=== PATIENT | female | born 1955 | race Caucasian/White ===

== ENCOUNTER 2021-12-17 15:38 | Emergency (ER) | payer MEDICARE, SELFPAY ==
--- NOTE | ~2021-12-17 | XR_ITS ---
EXAMINATION: XR hip LT 2V w AP pelvis, XR sacrum coccyx min 2V DATE: 12/17/2021 18:22 INDICATION: Left-sided pelvic pain post fall TECHNIQUE: 1. Anteroposterior view of the pelvis and anteroposterior and frog leg lateral views of the left hip were obtained. 2. AP and angled AP view of the sacrum and coccyx were obtained. COMPARISON: CT dated 12/17/2021 FINDINGS: Again seen are bilateral total hip arthroplasties. On the left this is superimposed over an old heale d left acetabular fracture with plate and screw fixation. There is also been prior L5-S1 anterior and posterior spinal fusion with interbody bone graft cages and bilateral vertical olivia and pedicle screw fixation. Spinal stimulator projects over the right lower quadrant with leads extending cephalad bey ond the margin of the [id number]. Surgical clip at the right lower quadrant. No acute fractures id entified. No periprosthetic lucency to suggest loosening. IMPRESSION: 1. Postoperative changes as detailed above. No acute fracture identified. Reviewed, dictated and finalized at location A. IMPRESSION: 1. Postoperative changes as detailed above. No acute fracture identified.
--- NOTE | ~2021-12-17 | CT_ITS ---
EXAMINATION: CT pelvis wo con DATE: 12/17/2021 17:23 INDICATION: Left hip and coccyx pain post fall TECHNIQUE: Computed tomography (CT) of the pelvis was performed without intravenous contrast. Automat ed exposure control and iterative reconstruction technique were employed.The dose-length product was 438.70 mGy-cm. COMPARISON: None FINDINGS: Right total hip arthroplasty which appears well seated in near-anatomic alignment. There is also a le ft total hip arthroplasty along with associated likely acetabular reconstruction with plate and screw fixation extending from the supra-acetabular region to the left ischium. Finally there is a partiall y visualized L5-S1 posterior spinal fusion with bilateral vertical olivia and pedicle screw fixation. Th ere is also anterior fusion at L5-S1 with interbody bone graft cage. Streak artifact from the instrum entation particularly at the level of the acetabula limits evaluation of the immediately adjacent bon es and soft tissues. No acute fractures identified. Normal alignment including at the coccyx. Likely spinal stimulator in the subcutaneous tissues at the superior right buttock muscle visualized leads w hich on the soft work wrapper examiner topogram project over the central canal of the upper lumbar and lower thoracic spin e. Cholecystectomy clips in right upper quadrant with trochar clip at the right paracolic gutter. Fol ey catheter extends towards the bladder which is obscured by streak artifact. IMPRESSION: 1. No acute osseous abnormality. Assessment is however limited by metallic streak artifact related to bilateral total hip arthroplasties and plate and screw fixation for a likely left acetabular reconst ruction. Would consider additional dedicated radiograph of the left hip, sacrum and coccyx for more d efinitive assessment of the regions of bone obscured by the artifact. Reviewed, dictated and finalized at location A. IMPRESSION: 1. No acute osseous abnormality. Assessment is however limited by metallic stre ak artifact related to bilateral total hip arthroplasties and plate and screw f ixation for a likely left acetabular reconstruction. Would consider additional dedicated radiograph of the left hip, sacrum and coccyx for more definitive ass essment of the regions of bone obscured by the artifact.
[2021-12-17 15:54] VITALS: BP 178/89; PULSE 80; RESP 18; TEMP 37.2; O2SAT 98
--- NOTE | 2021-12-17 15:58 | ED.GENADULT ---
HPI - General Adult General Chief complaint: Extremity Injury, Lower Stated complaint: left pelvis injury been brokwe before History of Present Illness HPI narrative: The patient is a 66-year-old woman with multiple orthopedic procedures in the past. To summarize: LEFT HIP: she has had 4 left hip operations, initially a total hip arthroplasty then revision 4 weeks later then redo total hip arthroplasty in 2010 which was complicated by fracture of the acetabulum and pelvis which required a redo operation within a few weeks at [facility] in [place] in 2010. RIGHT HIP: She has had a right hip right hip arthroplasty once. RIGHT KNEE: The right knee has been operated on twice, total knee replacement followed by revision 6 months later. LEFT KNEE: The left knee has been operated on once for left total knee replacement. LEFT SHOULDER: The left shoulder has been operated on once for left shoulder replacement. RIGTH SHOULDER: The right shoulder was replaced and then dislocated so a larger socket was placed which then dislocated and then was revised a 3rd time. RIGHT FOOT ANKLE: Her most recent orthopedic procedure has been right foot ankle fusion 2 months ago, on October 05, 2021. C SPINE: She also has had a prior cervical fusion. Her other predicted medical history is notable for vaccination against COVID-19, 2 of 2 doses +1 booster. She has had a previous DVT and was on Eliquis but this has been held. She was restarted on Eliquis as of today but she has not taken today's dose yet. She is not on any antiplatelet or anticoagulant agents at present. She does have chronic pain and is on methadone 50 mg p.o. t.i.d.. She is on Xanax as needed as well. She was working outside with her whereby her left leg fell into a ditch (for a water meter whose lid was not secured well). Her entire left leg entered the water meter ditch up to the pelvis/perineal region. She sustained pain in the left acetabulum region posteriorly and also the left tailbone region. She has not been able to ambulate since this event which took place just prior to arrival. Her brought her here. EMS was not notified. She has not been able to bear any weight on the left leg. She is complaining of severe excruciating pain in the posterior left pelvis region and in the tailbone region. No other complaints of pain in the right lower extremity or in either upper extremity or in the neck or upper or middle or lower back. Related Data Home Medications Medication Instructions Recorded Confirmed alprazolam 1 mg tablet 2 mg PO DAILY 12/17/21 12/17/21 levothyroxine 75 mcg tablet 75 mcg PO DAILY 12/17/21 12/17/21 methadone 5 mg tablet 5 mg PO TID 12/17/21 12/17/21 mirtazapine 15 mg tablet 15 mg PO DAILY 12/17/21 12/17/21 sertraline 100 mg tablet 100 mg PO DAILY 12/17/21 12/17/21 Allergies Allergy/AdvReac Type Severity Reaction Status Date / Time dextrose Allergy Unknown Verified 12/17/21 16:32 Latex, Natural Rubber Allergy Unknown Verified 12/17/21 16:32 ondansetron [From Zofran] Allergy Unknown Verified 12/17/21 16:32 Review of Systems Review of Systems: All systems reviewed & are unremarkable except as noted in HPI and below Constitutional: Constitutional: Reports no additional constitutional complaints, Denies anorexia, Denies body ache(s), Denies chills, Denies excessive sweating, Denies fatigue, Denies fever(s), Denies frequent falls, Denies headache(s), Denies malaise and Denies poor appetite Eyes: Eyes: Reports no additional eye complaints, Denies blurry vision, Denies change in vision, Denies irritation, Denies itchy eyes and Denies photophobia ENT: Reports system reviewed and no additional complaints, except as documented, Reports Normal hearing present, Denies change in voice, Denies dysphagia, Denies vertigo, Denies dizziness, Denies ear discharge, Denies headache(s), Denies hearing loss, Denies hoarseness, Denies nasal congestion, D
[2021-12-17] MEDS: fentaNYL CITRATE INJ (*CRX) 100 MCG/2 ML VIAL (16:00)
[2021-12-17] MEDS: SODIUM CHLORIDE 0.9% IV 1,000 ML 125 ML IV CONT (16:49)
[2021-12-17] MEDS: HYDROmorphone HCL INJ (*CRX) 2 MG/ML VIAL 0.5 MG IV PUSH (16:53)
[2021-12-17 16:55] LABS: Basophils Absolute Auto 0.05 K/mm3 (0.00-0.10); Basophils Percent Auto 0.5 % (0.0-1.0); Eosinophils Absolute Auto 0.15 K/mm3 (0.02-0.50); Eosinophils Percent Auto 1.5 % (1.0-6.0); Hematocrit 37.1 % (35.0-42.0); Hemoglobin 12.2 g/dL (11.7-13.8); Immature Granulocyte Absolute 0.04 K/mm3 (0.00-0.00); Immature Granulocyte Percent A 0.4 % (0.0-0.0); Lymphocytes Absolute Auto 2.18 K/mm3 (1.10-4.50); Lymphocytes Percent Auto 21.6 % (18.0-42.0); Mean Corpuscular HGB Conc 32.9 g/dL (32.0-36.0); Mean Corpuscular Hemoglobin 31.2 pg (27.0-31.0); Mean Corpuscular Volume 94.9 fL (78.0-102.0); Monocytes Absolute Auto 0.75 K/mm3 (0.10-0.90); Monocytes Percent Auto 7.4 % (2.0-11.0); Neutrophils Absolute Auto 6.9 K/mm3 (1.7-7.2); Neutrophils Percent Auto 68.6 % (50.0-70.0); Platelet Count Result 226 K/mm3 (150-420); Red Blood Count 3.91 M/mm3 (4.20-5.40); Red Cell Distribution Width 12.3 % (11.6-14.4); White Blood Count 10.1 K/mm3 (4.8-10.8)
[2021-12-17] MEDS: Please add drug allergy info to patient profile. 1 EACH XX (16:57)
[2021-12-17 17:08] LABS: Partial Thromboplastin Time 25.8 SEC (23.90-30.70); Prothrombin Time 11.4 Seconds (9.50-12.10)
[2021-12-17 17:09] LABS: Alanine Aminotransferase 28 U/L (14-59); Albumin Level 3.9 g/dL (3.4-5.0); Alkaline Phosphatase 123 U/L (46-116); Anion Gap 9 mmol/L (8-16); Aspartate Amino Transferase 28 U/L (15-37); Bilirubin,Total 0.3 mg/dL (0.00-1.00); Blood Urea Nitrogen 26 mg/dL (7-18); Calcium 8.6 mg/dL (8.5-10.1); Carbon Dioxide 28 mmol/L (21-32); Chloride 103 mmol/L (98-108); Estimated Glomerular Filt Rate 52; Glucose 84 mg/dL (70-99); Osmolality Calculated 293 mOsm/kg (285-295); Potassium 4.4 mmol/L (3.5-5.1); Sodium 140 mmol/L (136-145); Total Protein 7.3 g/dL (6.4-8.2)
[2021-12-17 17:14] LABS: Appearance Urine Cloudy (Clear); Bilirubin Urine Negative (Negative); Color Urine Yellow (Yellow); Glucose Urine UA Negative (Negative); Ketones Urine Negative (Negative); Leukocyte Esterase Ur Trace LEU/UL (Negative); Nitrate Urine Positive (Negative); Protein Urine Trace (Negative); Specific Grav Ur >= 1.030 (1.010-1.020); Urobilinogen Urine 0.2 mg/dL (0.2-1.0)
[2021-12-17 17:17] LABS: Add Urine Microscopic? YES; Bacteria Urine 3+ /hpf; Blood Urine Trace-Intact (Negative); Squamous Epithelial Cell Urine Many /hpf (Few)
[2021-12-17 17:21] LABS: Amphetamine Screen Urine Negative (Negative); Barbiturate Screen Urine Negative (Negative); Benzodiazepines Screen Urine Positive (Negative); Cannabinoid Screen Urine Positive (Negative); Cocaine Screen Urine Negative (Negative); Methadone Screen Urine Positive (Negative); Opiate Screen Urine Negative (Negative); Phencyclidine Screen Urine Negative (Negative)
[2021-12-17 17:28] LABS: SARS-CoV-2 RNA PCR Negative (Negative)
[2021-12-17 18:00] VITALS: BP 124/75; PULSE 74; RESP 20; O2SAT 97
--- NOTE | 2021-12-17 18:23 | PC.NURSE ---
pt returned to xray for more films. resting comfortably.
--- NOTE | 2021-12-17 19:02 | PC.NURSE ---
pt report to kong harrison, no questions.
[2021-12-17] MEDS: ORPHENADRINE CITRATE 30 MG/ML 2 ML VIAL 60 MG IV PUSH (19:08)
[2021-12-17 19:14] VITALS: BP 94/78; PULSE 74; RESP 20; O2SAT 97
[2021-12-17] MEDS: CYCLOBENZAPRINE HCL 10 MG TABLET PO (20:28)
[2021-12-17] MEDS: HYDROcodone/acetaminophen (*CRX) 5-325 MG TABLET 1 TAB PO (20:28)
[2021-12-17 20:38] VITALS: BP 123/76; PULSE 51; RESP 16; O2SAT 96
== END 2021-12-17 20:39 | disposition home or self-care (01) ==
PROVIDERS: Emergency Provider Emergency Medicine; PCP Emergency Medicine
DX: M25.552 Pain in left hip (principal); M53.3 Sacrococcygeal disorders, not elsewhere classified; N39.0 Urinary tract infection, site not specified; Z20.822 Contact with and (suspected) exposure to COVID-19; Z86.718 Personal history of other venous thrombosis and embolism; Z79.01 Long term (current) use of anticoagulants; Z79.899 Other long term (current) drug therapy; Z28.311 Partially vaccinated for COVID-19
CPT/HCPCS: 36415; 72192; 72220; 73502; 80053; 80307; 81001; 85025; 85610; 85730; 87077; 87086; 87088; 87186; 96361; 96365; 96375; 99284; A9270; C9803; J0696; J1170; J2360; J3010; J7030; U0003; U0005